=== PATIENT | male | born 1955 | race Caucasian/White ===

== ENCOUNTER 2022-12-10 14:17 | Inpatient (IN) | payer MEDICARE, OTHER ==
[~2022-12-10] VITALS: Ht 172.7 cm; Wt 85.8 kg
[2022-12-10 14:58] LABS: BASOPHILS % (AUTO) 0.3 % (0.0-2.0); EOSINOPHILS # (AUTO) 0.1 K/uL (0.0-0.7); EOSINOPHILS % (AUTO) 1.2 % (0.0-7.0); HEMATOCRIT 49.4 % (36.7-47.1); HEMOGLOBIN 16.8 g/dL (12.5-16.3); LYMPHOCYTES # (AUTO) 2.2 K/uL (0.8-4.8); MEAN CORPUSCULAR HEMOGLOBIN 32.9 uug (23.8-33.4); MEAN CORPUSCULAR HGB CONC 34 g/dL (32.5-36.3); MEAN CORPUSCULAR VOLUME 96.5 fL (73.0-96.2); MONOCYTES # (AUTO) 0.5 K/uL (0.1-1.30); MONOCYTES % (AUTO) 5.1 % (0.0-11.0); NEUTROPHILS # (AUTO) 6.5 K/uL (1.8-8.9); NEUTROPHILS % (AUTO) 69.4 % (38.5-71.5); PLATELET COUNT (AUTO) 140 K/uL (152-348); RED BLOOD CELL COUNT(AUTO) 5.12 MIL/uL (4.06-5.63); RED CELL DISTRIBUTION WIDTH 13.2 % (12.1-16.2); WHITE BLOOD COUNT (AUTO) 9.3 K/uL (3.6-10.2)
[2022-12-10 15:00] LABS: DIFFERENTIAL COMMENT 1
[2022-12-10 15:11] LABS: ALANINE AMINOTRANSFERASE 32 U/L (16-63); ALBUMIN 3.3 g/dL (3.4-5.0); ALKALINE PHOSPHATASE 122 U/L (50-136); ASPARTATE AMINOTRANSFERASE 22 U/L (15-37); BILIRUBIN,DIRECT 0.2 mg/dL (0.0-0.2); BILIRUBIN,TOTAL 0.8 mg/dL (0.2-1.0); CALCIUM 8.9 mg/dL (8.5-10.1); CARBON DIOXIDE 26 mmol/L (21-32); CHLORIDE 101 mmol/L (98-107); CREATININE 1.2 mg/dL (0.6-1.3); GLUCOSE 366 mg/dL (74-106); SODIUM SERUM 138 mmol/L (136-145); TOTAL PROTEIN, SERUM 6.9 g/dL (6.4-8.2); UREA NITROGEN, BLOOD 16 mg/dL (7-18)
[2022-12-10] MEDS ORDERED: LORAZEPAM 0.5 MG TABLET PO ONE (17:00)
[2022-12-10] MEDS ORDERED: HEPARIN/D5W DRIP 500 ML IV ONE (18:45)
[2022-12-10 18:51] VITALS: BP 141/93; TEMP 98.4; O2SAT 97
[2022-12-10] MEDS ORDERED: SWABABLE VALVE TRANSFER SET EA MC ONE (19:01)
[2022-12-10] MEDS ORDERED: IV NORMAL SALINE 250 ML IV ONE (19:01)
[2022-12-10] MEDS ORDERED: IOHEXOL 350 100 ML INFUS..BTL ONE (19:01)
[2022-12-10] MEDS ORDERED: ONDANSETRON 4 MG/2 ML VIAL IV PRN (20:15)
[2022-12-10] MEDS ORDERED: REMEDY ESSENTIAL ZINC PASTE 113 GM TP PRN (20:15)
[2022-12-10] MEDS ORDERED: MAGNESIUM HYDROXIDE 30 ML LIQUID UDC PO PRN (20:15)
[2022-12-10] MEDS ORDERED: ACETAMINOPHEN 325 MG TABLET PO PRN (20:15)
[2022-12-10] MEDS ORDERED: ZOLPIDEM 5 MG TABLET PO PRN (20:15)
[2022-12-10] MEDS ORDERED: HEPARIN/D5W DRIP 500 ML ONE (20:40)
[2022-12-10] MEDS ORDERED: HEPARIN SODIUM,PORCINE 5,000 UNITS/ML VIAL IV ONE (20:45)
[2022-12-11] MEDS ORDERED: HEPARIN/D5W DRIP 500 ML IV PRN (00:45)
[2022-12-11 03:51] LABS: BASOPHILS % (AUTO) 0.4 % (0.0-2.0); EOSINOPHILS # (AUTO) 0.1 K/uL (0.0-0.7); EOSINOPHILS % (AUTO) 1.3 % (0.0-7.0); HEMATOCRIT 47.2 % (36.7-47.1); HEMOGLOBIN 16.4 g/dL (12.5-16.3); LYMPHOCYTES # (AUTO) 2.4 K/uL (0.8-4.8); LYMPHOCYTES % (AUTO) 30.7 % (20.5-51.5); MEAN CORPUSCULAR HEMOGLOBIN 32.7 uug (23.8-33.4); MEAN CORPUSCULAR HGB CONC 35 g/dL (32.5-36.3); MEAN CORPUSCULAR VOLUME 94.2 fL (73.0-96.2); MONOCYTES # (AUTO) 0.5 K/uL (0.1-1.30); MONOCYTES % (AUTO) 6.3 % (0.0-11.0); NEUTROPHILS # (AUTO) 4.8 K/uL (1.8-8.9); NEUTROPHILS % (AUTO) 61.3 % (38.5-71.5); PLATELET COUNT (AUTO) 157 K/uL (152-348); RED BLOOD CELL COUNT(AUTO) 5.01 MIL/uL (4.06-5.63); RED CELL DISTRIBUTION WIDTH 13.2 % (12.1-16.2); WHITE BLOOD COUNT (AUTO) 7.9 K/uL (3.6-10.2)
[2022-12-11 04:00] VITALS: BP 171/95; TEMP 98.3; O2SAT 98
[2022-12-11 04:15] LABS: DIFFERENTIAL COMMENT 1
[2022-12-11 04:21] LABS: CALCIUM 8.7 mg/dL (8.5-10.1); MAGNESIUM 1.7 mg/dL (1.8-2.4); PHOSPHOROUS 2.9 mg/dL (2.5-4.9); POTASSIUM 3.9 mmol/L (3.5-5.1)
[2022-12-11] MEDS ORDERED: DEXTROSE 50% 50 ML DISP.SYRIN IV PRN (06:15)
[2022-12-11] MEDS ORDERED: INSULIN REGULAR, HUMAN 300 UNIT/3 ML VIAL SQ PRN ×2 (06:15→07:15)
[2022-12-11] MEDS ORDERED: MAGNESIUM SULFATE/D5W 100 ML IV SCH (07:15)
[2022-12-11] MEDS ORDERED: INSULIN REGULAR, HUMAN 300 UNITS/3 ML VIAL SQ PRN (07:15)
[2022-12-11] MEDS ORDERED: BLOOD SUGAR DIAGNOSTIC 1 EACH STRIP VI SCH (07:30)
[2022-12-11] MEDS ORDERED: INSULIN REGULAR, HUMAN 300 UNIT/3 ML VIAL SQ ONE (07:30)
[2022-12-11] MEDS ORDERED: PANTOPRAZOLE SODIUM 40 MG VIAL IV SCH (09:00)
== END 2022-12-11 09:10 | disposition left against medical advice (07) | DRG 176 ==
LOC: ER 14:17 → TELE3 18:08
PROVIDERS: ADMIT Nurse Practitioner Acute Care; ATTEND Nurse Practitioner Acute Care
DX: I26.94 Multiple subsegmental thrombotic pulmonary emboli without acute cor pulmonale (principal); E78.5 Hyperlipidemia, unspecified; E11.65 Type 2 diabetes mellitus with hyperglycemia; Z86.718 Personal history of other venous thrombosis and embolism; R55 Syncope and collapse; I51.9 Heart disease, unspecified
CPT/HCPCS: 36415; 70450; 71045; 71275; 83735; 84100; 84484; 85025; 85610; 85730; 86850; 86900; 86901; 93005; C9113; G0378; J1644; J1815; J3475; J7120; Q9967